=== PATIENT | female | born 1960 | race Caucasian/White ===

== ENCOUNTER 2018-10-14 14:52 | Emergency (ER) ==
[2018-10-14 14:58] VITALS: TEMP 97.3; BMI 26.5
[2018-10-14 15:13] VITALS: BP 147/83
--- NOTE | 2018-10-14 15:51 | DI ---
Exam: Single view of the chest. Comparison: 12/01/2009 Reason for exam: Pain. FINDINGS: No pneumothorax, pleural effusion, or focal consolidation. The cardiac silhouette is not enlarged. The imaged osseous structures appear grossly unremarkable without acute fracture. Impression: No acute cardiopulmonary process.
--- NOTE | 2018-10-14 16:30 | ED.PDOC ---
General ED Provider: Dr. FRANCISCO CONWAY Chief Complaint: Palpitations Stated Complaint: palpitation Time Seen by Physician: 15:00 Mode of Arrival: Walk-In Information Source: Patient Exam Limitations: No limitations Primary Care Provider: JAYME VALDERRAMA Nursing and Triage Documentation Reviewed and Agree: Yes Does patient meet sepsis criteria?: No System Inflammatory Response Syndrome: Not Applicable Sepsis Protocol: For patient's 13 years and over: Temp is 96.8 and below OR 101 and greater Pulse >90 BPM Resp >20/minute Acutely Altered Mental Status Are patient's symptoms suggestive of a new infection, such as: -Pneumonia -Skin, Soft Tissue -Endocarditis -UTI -Bone, Joint Infection -Implantable Device -Acute Abdominal Infection -Wound Infection -Meningitis -Blood Stream Catheter Infection -Unknown Cardiovascular Complaint Exam - Palpitations Complaint/Exam Onset/Duration: 1 hr ago Symptoms Are: Resolved Timing: Intermittent Initial Severity: Mild Current Severity: None Character: Reports: Fast Aggravating: Reports: None Alleviating: Reports: None Associated Signs and Symptoms: Denies: Lightheadedness, Dizziness, Syncope, Chest pain, Shortness of breath, Diaphoresis, Nausea, Vomiting Related Surgical History: Reports: None Cardiac Risk Factors: Reports: Smoking Pulmonary Embolism Risk Factors: Reports: Smoking Atrial Fibrillation Risk Factors: Reports: None Thyroid Exam: Normal Differential Diagnoses: Mitral Valve Prolapse Quality Indicators for AMI: EKG in 10min. Quality Indicators for Cardiac Chest Pain: EKG in 10min. Quality Indicator For Non-Traumatic Chest Pain/Syncope: EKG Performed Review of Systems - Review Of Systems Constitutional: Reports: No symptoms Eyes: Reports: No symptoms Ears, Nose, Mouth, Throat: Reports: No symptoms Respiratory: Reports: No symptoms Cardiac: Reports: Palpitations GI: Reports: No symptoms : Reports: No symptoms Musculoskeletal: Reports: No symptoms Skin: Reports: No symptoms Neurological: Reports: No symptoms Endocrine: Reports: No symptoms Hematologic/Lymphatic: Reports: No symptoms All Other Systems: Reviewed and Negative Past Medical History - Past Medical History Previously Healthy: Yes Endocrine: Reports: None Cardiovascular: Reports: None Respiratory: Reports: None Hematological: Reports: None Gastrointestinal: Reports: None Genitourinary: Reports: None Neuro/Psych: Reports: None Musculoskeletal: Reports: None Cancer: Reports: None Last Menstrual Period: menopause - Surgical History General Surgical History: Reports: None - Family History Family History: Reports: None - Social History Smoking Status: Former smoker Hx Substance Use: No Alcohol Screening: None Physical Exam - Physical Exam Appearance: Well-appearing, No pain distress, Well-nourished Eyes: ROMANA, EOMI, Conjunctiva clear ENT: Ears normal, Nose normal, Oropharynx normal Respiratory: Airway patent, Breath sounds clear, Breath sounds equal, Respirations nonlabored Cardiovascular: RRR, Pulses normal, No rub, No murmur GI/: Soft, Nontender, No masses, Bowel sounds normal, No Organomegaly Musculoskeletal: Normal strength, ROM intact, No edema, No calf tenderness Skin: Warm, Dry, Normal color Neurological: Sensation intact, Motor intact, Reflexes intact, Cranial nerves intact, Alert, Oriented Psychiatric: Affect appropriate, Mood appropriate Interpretation - Radiology Interpretation Radiology Interpretation By: Radiologist Radiology Results: No acute changes - [employer] Technician Rate: Normal Rhythm: Sinus Ectopy: None - EKG Interpretation Rate: Normal Rhythm: Sinus Ectopy: None [place]: [place] ST Segment: Normal Critical Care Note - Critical Care Note Total Time (mins): 0 Course - Course Hematology/Chemistry: 10/14/18 15:05 10/14/18 15:25 Orders, Labs, Meds: Lab Review 10/14/18 10/14/18 10/14/18 15:05 15:25 15:25 WBC 8.03 RBC 4.54 Hgb 13.7 Hct 41.3 MCV 91.0 MCH 30.2 MCHC 33.2 RDW Coeff of Olive 13.5 Plt Count 218 Immature Gran % (Auto) 0.2 Neut % (Auto) 60.1 Lymph % (Auto) 31.3 Maries % (Auto) 6.6 Eos % (Auto) 1.2 Baso % (Auto) 0.6 Immature Gran # (Auto) 0.0 Neut # (Auto) 4.8 Lymph # (Auto) 2.5 Maries # (Auto) 0.5 Eos # (Auto) 0.1 Baso # (Auto) 0.1 PT INR APTT Sodium 140.4 Potassium 4.01 Chloride 104.6 Carbon Dioxide 28.8 Anion Gap 11.01 BUN 18.1 H Creatinine 1.26 Estimated GFR (MDRD) 44.00 BUN/Creatinine Ratio 14.36 Glucose 103.4 Calcium 9.74 Total Bilirubin 0.28 AST 24.6 ALT 16.6 Alkaline Phosphatase 87.8 Total Creatine Kinase 87.9 Troponin I < 0.012 Total Protein 7.41 Albumin 4.37 Globulin 3.04 Albumin/Globulin Ratio 1.43 TSH 3.780 Free T4 0.86 10/14/18 15:25 WBC RBC Hgb Hct MCV MCH MCHC RDW Coeff of Olive Plt Count Immature Gran % (Auto) Neut % (Auto) Lymph % (Auto) Maries % (Auto) Eos % (Auto) Baso % (Auto) Immature Gran # (Auto) Neut # (Auto) Lymph # (Auto) Maries # (Auto) Eos # (Auto) Baso # (Auto) PT 9.3 INR 0.95 APTT 27.6 Sodium Potassium Chloride Carbon Dioxide Anion Gap BUN Creatinine Estimated GFR (MDRD) BUN/Creatinine Ratio Glucose Calcium Total Bilirubin AST ALT Alkaline Phosphatase Total Creatine Kinase Troponin I Total Protein Albumin Globulin Albumin/Globulin Ratio TSH Free T4 Orders Category Date Time Status EKG-(ED ONLY) Stat CARDIO 10/14/18 15:21 Completed EKG-(ED ONLY) Stat CARDIO 10/14/18 16:28 Ordered HOLTER MONITOR-(ED ONLY) Stat CARDIO 10/14/18 16:27 Ordered CBC W/ AUTO DIFF Stat LAB 10/14/18 15:05 Completed COMPREHENSIVE METABOLIC PANEL Stat LAB 10/14/18 15:25 Completed CREATINE KINASE Stat LAB 10/14/18 15:25 Completed FREE T4 (FREE THYROXINE) Stat LAB 10/14/18 15:25 Completed PARTIAL THROMBOPLASTIN TIME Stat LAB 10/14/18 15:25 Completed PT WITH INR Stat LAB 10/14/18 15:25 Completed THYROID STIMULATING HORMONE Stat LAB 10/14/18 15:25 Completed TROPONIN I Stat LAB 10/14/18 15:25 Completed 0.9 % Sodium Chloride [Saline Flush] MEDS 10/14/18 15:11 Active 1 syr IVF PRN PRN CHEST, 1V AP ONLY Stat RADS 10/14/18 15:12 Completed Medications Generic Name Dose Route Start Last Admin Trade Name Freq PRN Reason Stop Dose Admin Sodium Chloride 1 syr 10/14/18 15:11 Saline Flush IVF PRN PRN To flush IV Vital Signs: Temp Pulse Resp BP Pulse Ox 10/14/18 15:04 65 20 147/83 H 97 10/14/18 14:52 97.3 F L 68 20 148/103 H 98 PEACE Risk Score Age >/= 65: No >/= 3 CAD Risk Factors: No Known CAD (Stenosis >/= 50%): No ASA Use in Past 7 Days: No Severe Angina (>/= 2 episodes in 24 hours): No EKG ST Changes >/= 0.5mm: No Postive Cardiac Marker: No PEACE Total Score: 0 PEACE Risk Score: Risk Score Odds of by 30D 0 0.1 (0.1-0.2) 1 0.3 (0.2-0.3) 2 0.4 (0.3-0.5) 3 0.7 (0.6-0.9) 4 1.2 (1.0-1.5) 5 2.2 (1.9-2.6) 6 3.0 (2.5-3.6) 7 4.8 (3.8-6.1) Departure - Departure Time of Disposition: 16:30 Disposition: HOME SELF-CARE Discharge Problem: Palpitations Instructions: Heart Palpitations (ED) Condition: Good Pt referred to PMD for follow-up: Yes IPMP verified?: No Additional Instructions: Please call your Family Physician as soon as possible to schedule a follow-up appointment. Allergies/Adverse Reactions: Allergies No Known Allergies Allergy (Unverified 10/14/18 15:01) Home Medications: Ambulatory Orders 1 [No Reported Medications] 10/14/18 Disposition Discussed With: Patient
--- NOTE | 2018-10-16 10:33 | HOLTER ---
PATIENT INFORMATION AND COMMENTS Attending Physician: DR. JAYME VALDERRAMA Indications: PALPITATIONS __ Patient Medications: NO PRESCRIPTION MEDICATIONS __ Pre-procedure Summary: Protocol: Standard Heart Rate Started: 10/14/181649 Minimum: 47 BPM Weight: 145 LBS Ended: 10/15/181649 Maximum: 133 BPM Height: 62" Duration: 24 HOURS Average: 65 BPM _ INTERPRETATIONS/OBSERVATIONS: 1. BASIC RHYTHM: SINUS, RATE 50 BPM TO 130 BPM, AVERAGE 65 BPM 2. RARE ISOLATED PAC'S & PVC'S 3. NO ST-T WAVE CHANGES FROM BASELINE 4. ACTIVITY LOG NOT MAINTAINED MTDD
== END 2018-10-14 17:01 | disposition home or self-care (01) ==
LOC: ED 14:52
DX: R00.2 Palpitations (principal)
CPT/HCPCS: 36415; 80053; 82550; 84439; 84443; 84484; 85025; 85610; 85730; 93005; 93010; 99283

== ENCOUNTER 2018-10-27 06:39 | Outpatient (CLI) ==
[2018-10-27] MEDS ORDERED: ALBUTEROL 0.083% NEB NEB STA (07:01)
--- NOTE | 2018-10-27 09:15 | STRESSECHO ---
Date of Test: 10/27/18 Ordering Physician: DR. JAYME VALDERRAMA Occupation: [employer] Reason for Exam: DYSPNEA Smoking History: QUIT 2 YRS AGO/ 50+ PK/YRS Height: 63 " Weight: 140 LBS Current Medications: COMBIVENT INHALER Resting EKG: SINUS RHYTHM/ NO ACUTE CHANGES Target Heart Rate: 137/162 S-T SEGMENT STAGE MPH/GRADE HEART RATE BPM BLOOD PRESSURE MMHG RHYTHM +/- ELEVATION DEPRESSION SYMPTOMS AT REST 60 BPM 136/70 MMHG SR X NONE 1 1.7/10% 112 BPM 138/76 MMHG SR X NONE 2 2.5/12% 168/72 MMHG SR X NONE 3 3.4/14% 4 4.2/16% 5 5.0/18% Immediately After 155 BPM SR X SHORT OF AIR Minutes Post Exercise 1:00 120 BPM 160/80 MMHG SR X NONE Minutes Post Exercise 5:00 65 BPM 122/60 MMHG SR X NONE DURATION OF EXERCISE: 5:00 MAXIMUM HEART RATE REACHED: 155 BPM REASON FOR TERMINATION: SHORT OF AIR 88% OXYGEN SATURATION ON ROOM AIR WITH EXERCISE INTERPRETATION: 1. NO EVIDENCE OF ISCHEMIA BY ST-T WAVE 2. NO CHEST PAIN OR DISCOMFORT 3. BLOOD PRESSURE RESPONSE: NORMAL 4. NO ARRHYTHMIA 5. HYPOXEMIA AT THE HEIGHT OF EXERCISE WITH SATURATION 88% ON ROOM AIR NORMAL LEFT VENTRICULAR CONTRACTILITY--RESTING AND POST EXERCISE FOUR MINUTES POST EXERCISE OXYGEN SATURATION 99% ON ROOM AIR MTDD
--- NOTE | 2018-10-27 09:17 | ECHOSTRESS ---
Date of Exam: 10/27/18 Ordering Physician: DR. JAYME VALDERRAMA Reason for Echo: DYSPNEA M-Mode Normal Adult Results LV Dimensions Normal Adult Results AoV Opening excursions >1.6 LVEDD-base- 3.5-5.8 Ao root dimensions 2.0-3.7 LVESD-base- 3.1-4.6 L. Atrium dimensions 1.9-3.8 Post. Wall thickness 0.8-1.1 IV septum (thickness) 0.7-1.2 Post. Wall excursion 0.72-1.3 Septal motion Systolic motion R. Ventricular cavity 1.5-2.0 LVEF 60% Paradoxical septal wall motion 2-D: NORMAL LEFT VENTRICULAR CONTRACTILITY--RESTING AND POST EXERCISE M-MODE: MV: AV: TV: PV: CHAMBER SIZE: WALL MOTION: NORMAL LEFT VENTRICULAR CONTRACTILITY--RESTING AND POST EXERCISE PERICARDIUM: INTERPRETATION: 1. NORMAL LEFT VENTRICULAR CONTRACTILITY--RESTING AND POST EXERCISE MTDD
== END 2018-10-27 06:40 | disposition home or self-care (01) ==
LOC: CAR 06:39
PROVIDERS: ATTEND Family Medicine
DX: R06.00 Dyspnea, unspecified (principal)
CPT/HCPCS: 82803